=== PATIENT | male | born 1975 | race African-American/Black ===

== ENCOUNTER 2020-08-10 21:27 | Emergency (ER) | payer MEDICAID ==
[~2020-08-10] VITALS: Ht 182.9 cm; Wt 90.0 kg
[2020-08-10] MEDS ORDERED: ONDANSETRON HCL 4MG/2ML INJ IV STA (22:07)
[2020-08-10] MEDS ORDERED: MORPHINE SULFATE 4 MG/ML CPJ (NOT FOR IM USE) IV STA (22:07)
[2020-08-10] MEDS ORDERED: BACITRACIN ZINC OINT UDPKT TOP ONE (22:15)
[2020-08-10] MEDS ORDERED: SODIUM CHLORIDE 0.9% 1,000 ML IV ONE (22:15)
[2020-08-10] MEDS ORDERED: TETANUS, DIPHTHERIA, PERTUSSIS VAC/PF 0.5ML (>7YR OLD) IM ONE (22:15)
[2020-08-10 23:01] LABS: BASOPHILS % 0.3 % (0.0-2.0); HEMATOCRIT. 40.9 % (42.0-52.0); HEMOGLOBIN. 13.5 g/dL (14.0-18.0); LYMPHOCYTES % 25.3 % (20.0-50.0); MEAN CORPUSCULAR HEMOGLOBIN 28.3 pg (28.0-32.0); MEAN CORPUSCULAR VOLUME 85.8 fL (80.0-94.0); MEAN PLATELET VOLUME 7.8 fl (7.4-10.4); NEUTROPHILS % 63.4 % (40.0-76.0); PLATELET 210 x1000/uL (130-400); RED BLOOD CELL COUNT 4.77 mill/uL (4.7-6.1)
[2020-08-10 23:07] LABS: CHLORIDE 108 mEq/L (98-107)
[2020-08-11 01:30] VITALS: BP 129/87
[2020-08-11] MEDS ORDERED: IOHEXOL-300 100 ML BOTTLE ONE (01:53)
== END 2020-08-11 01:49 | disposition home or self-care (01) ==
LOC: ER 21:27
DX: S01.81XA Laceration without foreign body of other part of head, initial encounter (principal); S16.1XXA Strain of muscle, fascia and tendon at neck level, initial encounter; S39.012A Strain of muscle, fascia and tendon of lower back, initial encounter; S29.012A Strain of muscle and tendon of back wall of thorax, initial encounter; Z98.890 Other specified postprocedural states; V43.52XA Car driver injured in collision with other type car in traffic accident, initial encounter; Y93.89 Activity, other specified; Y92.488 Other paved roadways as the place of occurrence of the external cause
CPT/HCPCS: 36415; 70450; 70486; 71045; 71260; 72125; 74177; 80048; 85025; 96361; 96374; 96375; 99285; J2270; J2405; J7030; Q9967

== ENCOUNTER 2022-01-18 10:25 | Emergency (ER) | payer MEDICAID ==
[~2022-01-18] VITALS: Ht 185.4 cm; Wt 100.0 kg
[2022-01-18] MEDS ORDERED: HYDROCODONE/ACETAMINOPHEN 5/325MG TABLET PO ONE (10:45)
[2022-01-18] MEDS ORDERED: NAPR-681 MT (11:35)
[2022-01-18 11:59] VITALS: BP 151/99
[2022-01-18] MEDS ORDERED: HYDR-4001 MT (11:59)
== END 2022-01-18 11:59 | disposition home or self-care (01) ==
LOC: ER 10:25
DX: M25.511 Pain in right shoulder (principal); M79.621 Pain in right upper arm; F41.9 Anxiety disorder, unspecified; F17.210 Nicotine dependence, cigarettes, uncomplicated; Z98.890 Other specified postprocedural states
CPT/HCPCS: 73030; 73060; 99284